=== PATIENT | female | born 2000 | race Caucasian/White ===

== ENCOUNTER 2019-06-04 04:13 | Emergency (ER) | payer BC, SELFPAY ==
[2019-06-04 04:23] VITALS: BP 103/61; PULSE 112; RESP 16; TEMP 37.7; O2SAT 97
[2019-06-04 04:29] VITALS: BP 103/61; PULSE 112; RESP 19; TEMP 37.7; O2SAT 97
[2019-06-04] MEDS: MORPHINE SULFATE 4 MG/ML INJ IV PUSH (04:50)
[2019-06-04] MEDS: ONDANSETRON INJ 4 MG/2 ML VIAL IV PUSH (04:50)
[2019-06-04] MEDS: SODIUM CHLORIDE 0.9% IV 1,000 ML 999 ML IV CONT (04:51)
[2019-06-04 05:02] LABS: Basophils Percent Auto 0.4 % (0.2-1.2); Eosinophils Absolute Auto 0.1 K/mm3 (0-0.3); Eosinophils Percent Auto 0.5 % (0-4.4); Hematocrit 38.9 % (37.0-47.0); Hemoglobin 13.2 g/dL (12.0-15.0); Immature Granulocyte Absolute 0.04 K/mm3 (0.00-0.031); Immature Granulocyte Percent A 0.4 % (0-0.5); Lymphocytes Absolute Auto 1.38 K/mm3 (0.9-3.2); Lymphocytes Percent Auto 12.3 % (18.3-44.2); Mean Corpuscular HGB Conc 33.9 g/dl (32-36); Mean Corpuscular Hemoglobin 30.2 pg (26-34); Mean Platelet Volume 10.9 fl (7.4-10.4); Monocytes Absolute Auto 1.6 K/mm3 (0.1-0.6); Monocytes Percent Auto 14.5 % (2.6-8.5); Neutrophils Absolute Auto 8.1 K/mm3 (1.3-6.7); Neutrophils Percent Auto 71.9 % (45.5-73.1); Platelet Count Result 191 k/mm3 (150-375); Red Blood Count 4.37 M/mm3 (4.2-5.4); Red Cell Distribution Width 11.5 % (11.5-14.5); White Blood Count 11.2 K/mm3 (4.5-10.0)
[2019-06-04 05:10] LABS: Add Urine Microscopic? YES; Appearance Urine Cloudy (Clear); Bacteria Urine 4+ /hpf; Bilirubin Urine Negative (Negative); Blood Urine Negative (Negative); Color Urine Yellow (Yellow); Glucose Urine UA Negative (Negative); Ketones Urine Negative (Negative); Leukocyte Esterase Ur 1+ LEU/UL (Negative); Mucus Urine Rare /lpf; Nitrate Urine Negative (Negative); Protein Urine 1+ mg/dL (Negative); Specific Grav Ur 1.013 (1.001-1.035); Squamous Epithelial Cell Urine Many /hpf (Few); Urobilinogen Urine Negative mg/dL (<2.0); WBC Urine 31-50
[2019-06-04 05:17] LABS: Alanine Aminotransferase 13 U/L (4-35); Albumin Level 4.3 g/dL (3.5-5.1); Alkaline Phosphatase 67 U/L (38-126); Aspartate Amino Transferase 21 U/L (14-36); Bilirubin,Total 0.6 mg/dL (0.2-1.3); Blood Urea Nitrogen 11 mg/dL (7-17); Calcium 9.1 mg/dL (8.4-10.2); Carbon Dioxide 23 mmol/L (22-30); Chloride 98 mmol/L (98-107); Estimated CRCL calculation 95 ml/min; Estimated Glomerular Filt Rate > 60; Glucose 103 mg/dL (65-105); Potassium 3.9 mmol/L (3.4-5.0); Sodium 136 mmol/L (137-145)
--- NOTE | 2019-06-04 05:23 | ED.GENADULT ---
HPI - General Adult General Chief complaint: Abdominal Pain Stated complaint: UTI? Time Seen by Provider: 06/04/19 04:31 History of Present Illness HPI narrative: Patient is a 19-year-old female who presents ER with nausea and vomiting as well as some abdominal discomfort. Patient was diagnosed with a kidney infection on 06/01/2019. She was prescribed Bactrim. She has been vomiting is unsure if she is keeping down her antibiotic. She reports fevers as well as chills. She has some mild discomfort left back. Prior to being diagnosed patient had urinary discomfort for 1 week. Related Data Allergies Allergy/AdvReac Type Severity Reaction Status Date / Time No Known Allergies Allergy Unknown Verified 04/02/18 21:32 Review of Systems Review of Systems: All systems reviewed & are unremarkable except as noted in HPI and below Constitutional: Constitutional: Reports chills, Reports fever(s) and Denies weakness Respiratory: Respiratory: Denies cough, Denies dyspnea and Denies wheezing Genitourinary: Genitourinary: Denies hematuria, Reports frequent urination, Reports dysuria and Reports urinary incontinence Musculoskeletal: Musculoskeletal: Reports back pain and Denies muscle cramps PMFSH Past Medical History Medical History (Updated 06/04/19 @ 06:33 by Kervin Bonilla MD) No pertinent past medical history (Acute) Surgical History Surgical History (Updated 06/04/19 @ 05:29 by Kervin Bonilla MD) No pertinent past surgical history (Acute) Social History Social History (Updated 06/04/19 @ 05:30 by Kervin Bonilla MD) Smoking status: Never smoker Gender identity (if verbalized by the patient): Female Exam Narrative: Exam Narrative: GENERAL: Well-appearing, well-nourished, and in no acute distress. HEAD: Normocephalic, atraumatic. ENT: Mucous membranes moist. CHEST: Clear to auscultation. No respiratory distress. HEART: Tachycardic and regular normal peripheral pulses. ABDOMEN: Soft, nontender, nondistended, mild left CVA tenderness. EXTREMITIES: Normal range of motion. No edema. SKIN: Warm, dry, no rash. NEURO: Alert and oriented x3. Course Course Emergency Course: Patient feels much better. Given ceftriaxone IV to treat infection. Discontinue Bactrim discharge with Keflex. Patient verbalized understanding of treatment plan. Aware that she should return if her symptoms are not improving. Vital Signs Vital signs: Vital Signs Temperature 99.9 F H 06/04/19 04:23 Pulse Rate 112 H 06/04/19 04:23 Respiratory Rate 16 06/04/19 04:23 Blood Pressure 103/61 06/04/19 04:23 Pulse Oximetry 97 06/04/19 04:23 Temperature 99.9 F H 06/04/19 04:29 Pulse Rate 76 06/04/19 05:41 Respiratory Rate 16 06/04/19 05:41 Blood Pressure 121/76 06/04/19 05:41 Pulse Oximetry 100 06/04/19 05:41 Medical Decision Making Vital Signs Vital Signs: Vital Signs Temperature 99.9 F H 06/04/19 04:23 Pulse Rate 112 H 06/04/19 04:23 Respiratory Rate 16 06/04/19 04:23 Blood Pressure 103/61 06/04/19 04:23 Pulse Oximetry 97 06/04/19 04:23 Temperature 99.9 F H 06/04/19 04:29 Pulse Rate 76 06/04/19 05:41 Respiratory Rate 16 06/04/19 05:41 Blood Pressure 121/76 06/04/19 05:41 Pulse Oximetry 100 06/04/19 05:41 Lab Data Result diagrams: 06/04/19 04:54 06/04/19 04:54 Labs: Lab Results 06/04/19 06/04/19 06/04/19 Range/Units 04:54 04:54 04:54 WBC 11.2 H (4.5-10.0) K/mm3 RBC 4.37 (4.2-5.4) M/mm3 Hgb 13.2 (12.0-15.0) g/dL Hct 38.9 (37.0-47.0) % MCV 89.0 (80-100) fl MCH 30.2 (26-34) pg MCHC 33.9 (32-36) g/dl RDW 11.5 (11.5-14.5) % Plt Count 191 (150-375) k/mm3 MPV 10.9 H (7.4-10.4) fl Immature Gran % (Auto) 0.4 (0-0.5) % Neut % (Auto) 71.9 (45.5-73.1) % Lymph % (Auto) 12.3 L (18.3-44.2) % [place] % (Auto) 14.5 H (2.6-8.5) % Eos % (Auto) 0.5 (0-4.4) % Baso %
[2019-06-04 05:41] VITALS: BP 121/76; PULSE 76; RESP 16; O2SAT 100
[2019-06-04 07:06] VITALS: BP 110/76; PULSE 88; RESP 16; TEMP 36.4; O2SAT 100
--- NOTE | 2019-06-08 19:21 | PC.NURSE ---
LATE ENTRY This note is being entered to document information to the patient's record. The following information was omitted on [06/05/19], CEFTR[facility] STOPPED AT [id number]
== END 2019-06-04 07:09 | disposition home or self-care (01) ==
PROVIDERS: Emergency Provider Emergency Medicine
DX: N12 Tubulo-interstitial nephritis, not specified as acute or chronic (principal)
CPT/HCPCS: 36415; 80053; 81001; 81025; 85025; 87077; 87086; 87088; 87186; 96361; 96365; 96375; 99284; J0696; J2270; J2405; J7030

== ENCOUNTER 2022-09-18 13:59 | Emergency (ER) | payer OTHER, SELFPAY ==
--- NOTE | ~2022-09-18 | XR_ITS ---
EXAM: XR finger 2nd LT min 2V DATE: 09/18/2022 15:12 HISTORY: pain, injury, got finger caught in salicylic acid blender . COMPARISON: None available. FINDINGS: Normal mineralization. Small osseous defect along the anterior medial aspect of the left s econd distal phalange. No lytic or blastic lesion. Joint spaces are maintained. No erosion or periost eal change. Soft tissue defect overlying the osseous abnormality in the left distal second digit. IMPRESSION: Small osseous defect along the anterior medial aspect of the left second distal phalange, incomplete and likely open fracture. Reviewed, dictated and finalized at location K. IMPRESSION: Small osseous defect along the anterior medial aspect of the left s econd distal phalange, incomplete and likely open fracture.
[2022-09-18 14:00] VITALS: BP 123/75; PULSE 71; RESP 18; TEMP 36.5; O2SAT 100
--- NOTE | 2022-09-18 15:06 | ED.WOUNDLAC ---
HPI - Wound/Laceration General Chief Complaint: Wound/Laceration Stated Complaint: finger lac Time Seen by Provider: 09/18/22 14:12 Source: patient Mode of arrival: ambulatory Limitations: no limitations History of Present Illness HPI narrative: This is a 22 year old female that presents to the ER for an injury to the left 2nd finger sustained just prior to arrival. Reports she sustained a laceration via a immersion chemical blender. She is not up-to-date on tetanus. Denies decreased range of motion or numbness. Related Data Allergies Allergy/AdvReac Type Severity Reaction Status Date / Time No Known Allergies Allergy Unknown Verified 09/18/22 17:01 Review of Systems Review of Systems: CONSTITUTIONAL: Denies fever SKIN: Reports laceration NEUROLOGIC: Denies numbness All systems reviewed & are unremarkable except as noted in HPI and below PMFSH Past Medical History Medical History (Updated 09/18/22 @ 16:52 by Elaine Silverio PA-C) No pertinent past medical history Surgical History Surgical History (Updated 06/04/19 @ 05:29 by Kervin Bonilla MD) No pertinent past surgical history Social History Social History (Updated 06/04/19 @ 05:30 by Kervin Bonilla MD) Smoking status: Never smoker Gender identity (if verbalized by the patient): Female Exam Narrative: GENERAL: Well-appearing, well-nourished, and in no acute distress. HEAD: Normocephalic, atraumatic. EYES: EOMI. EXTREMITIES: Normal range of motion. No edema. Several superficial lacerations to the left 2nd finger distal phalanx with one 1.5cm linear laceration into subcutaneous tissue. Normal sensation. Normal capillary refill. There is a proximal portion of the nail that is involved SKIN: Warm, dry, no rash. NEURO: No focal deficits. Alert and oriented x3. PSYCH: Normal mood and affect Course Course Emergency Course: Patient was updated on work-up and agrees with plan of care Vital Signs Vital signs: Vital Signs Temperature 97.7 F 09/18/22 14:00 Pulse Rate 71 09/18/22 14:00 Respiratory Rate 18 09/18/22 14:00 Blood Pressure 123/75 09/18/22 14:00 Pulse Oximetry 100 09/18/22 14:00 Oxygen Delivery Room Air 09/18/22 14:00 Temperature 97.7 F 09/18/22 14:00 Pulse Rate 71 09/18/22 14:00 Respiratory Rate 18 09/18/22 14:00 Blood Pressure 123/75 09/18/22 14:00 Pulse Oximetry 100 09/18/22 14:00 Oxygen Delivery Room Air 09/18/22 14:00 Procedures Laceration Laceration 1: Date: 09/18/22 Time: 16:59 Site: hand Side (If applicable): left Size (cm): 1.5 Description: linear Depth: simple, single layer Local Anesthetic: lidocaine 1% Amount of anesthesia used (mL): 4 Pre-repair: wound explored and irrigated extensively ====== Skin Level ====== Skin layer closed with: nylon Size (cm): 4-0 Number of sutures: 3 Technique: simple, interrupted ====== Subcutaneous Layer ====== ====== Muscle Layer ====== ====== Tendon Layer ====== Orthopedic Splinting/Casting Injury #1: Splinting/Casting Date: 09/18/22 Splinting/Casting Time: 17:01 Side: left Upper Extremity Injury Location: finger Upper Extremity Immobilizer: finger (other) Splint: prefabricated Pre-Formed: metal foam finger splint Pre-Procedure Neuro Vascular Exam: normal Post-Procedure Neuro Vascular Exam: normal MDM - Wound/Laceration MDM Narrative Medical decision making narrative: Patient presents to the emergency department for an injury to the left second finger sustained via immersion chemical blender. Patient is neurovascularly intact. Her wound was thoroughly irrigated and closed with sutures. Patient placed in finger splint. She was updated on tetanus. Left second finger x-ray does show a small osseous defect along the anterior medial aspect of the left second distal phalange, incomp
[2022-09-18] MEDS: TETANUS,DIPHTHERIA,AC PERTUSSIS ADULT (0.5 ML) BOOSTRIX IM (15:12)
[2022-09-18] MEDS: ceFAZolin SODIUM 1 GM VIAL IM (15:41)
[2022-09-18] MEDS: WATER, STERILE FOR INJECTION 10 ML VIAL XX (15:41)
[2022-09-18 17:00] VITALS: BP 100/72; PULSE 70; RESP 18; O2SAT 100
== END 2022-09-18 17:09 | disposition home or self-care (01) ==
PROVIDERS: Emergency Provider Physician Assistant
DX: S61.211A Laceration without foreign body of left index finger without damage to nail, initial encounter (principal); W26.8XXA Contact with other sharp object(s), not elsewhere classified, initial encounter; Z23 Encounter for immunization
CPT/HCPCS: 12001; 29130; 73140; 90471; 90715; 96372; 99284; J0690

== ENCOUNTER → 2023-01-05 10:19 | Outpatient (CLI) | payer OTHER, SELFPAY ==
--- NOTE | ~2023-01-05 | US_ITS ---
EXAMINATION: US transvaginal DATE: 01/05/2023 10:47 INDICATION: Missing intrauterine device strings. TECHNIQUE: Multiple transvaginal sonographic images of the pelvis were obtained. COMPARISON: Ultrasound 01/03/2019 FINDINGS: The uterus measures 7.3 x 3.8 x 4.4 cm. There is no free fluid in the pelvis. The endometrial complex measures 9 mm in thickness. There is an intrauterine device in expected position. The right ovary me asures 3.0 x 2.6 x 2.4 cm. The left ovary measures 2.9 x 1.6 x 2.1 cm. There is normal vascular flow in the ovaries. IMPRESSION: 1. Intrauterine device in expected position. Reviewed, dictated and finalized at location A.
== END ==
PROVIDERS: PCP Nurse Practitioner; Visit Provider Nurse Practitioner
DX: T83.32XA Displacement of intrauterine contraceptive device, initial encounter (principal)
CPT/HCPCS: 76830